=== PATIENT | female | born 1975 | race Caucasian/White ===

== ENCOUNTER 2017-02-23 00:04 | Emergency (ER) | payer BC ==
[2017-02-23] MEDS ORDERED: ONDANSETRON HCL/PF 2 MG/ML VIAL IV ONE (00:36)
[2017-02-23] MEDS ORDERED: NORMAL SALINE 1,000 ML IV ONE (00:37)
--- NOTE | 2017-02-23 00:41 | ERNOTE ---
Abdominal HPI - General Chief Complaint: Abdominal Pain Time Seen by Provider: 02/23/17 00:32 Source: patient Exam Limitations: no limitations - Immun/Allergies/Home Medications Immunizatons: IMMUNIZATION HX Immunizations Up to Date Yes History of Influenza Vaccine No Hx Pneumococcal Vaccination No Allergies/Adverse Reactions: Allergies No Known Allergies Allergy (Verified 02/23/17 00:12) Home Medications: HOME MEDICATIONS Ibuprofen 400 mg PO PRN PRN 02/23/17 [Last Taken 02/22/17 23:00 600 mg] - History of Present Illness Narrative: Pt had onset of abdominal pain after eating a recees peanut butter cup around 20 :00. She continues to have crampy upper abdominal pain with mild nausea Timing: constant Quality: moderate, cramping Activities at Onset: none Modifying Factors - (Improves): Present: sitting up Modifying Factors - (Worsens): Present: lying down Associated Symptoms: Present: back pain Prior Abdominal Problems: Present: none Review of Systems - Review of Systems Constitutional: Absent: recent illness EYE: Present: no symptoms reported ENT: Present: no symptoms reported Respiratory: Absent: shortness of breath Cardiology: Absent: chest pain Gastrointestinal/Abdominal: Present: nausea - mild. Absent: vomiting, diarrhea Genitourinary: Present: no symptoms reported Musculoskeletal: Present: no symptoms reported Skin: Present: no symptoms reported Neurological: Present: no symptoms reported Endocrine: Present: no symptoms reported Hematologic/Lymphatic: Present: no symptoms reported Psych: Present: no symptoms reported - Patient's Past Medical History Patient History - Medical: No pertinent hx Patient History - Cardiac/Respiratory: No pertinent hx Patient History - Cancer: No Hx of Cancer Patient History - Surgical Procedures: No surgical history Patient History - Other: None LMP (females 10-50): last week - Social History Living Situations: home Psych History: No pertinent hx Smoking Status: Current every day smoker Alcohol Use: none Drug Use: none - Immunizations Immunizations Up to Date: Yes Hx Pneumococcal Vaccination: No History of Influenza Vaccine: No Physical Exam - Physical Exam General Appearance: Present: wd/wn, alert, mild distress Head Exam: Present: normal inspection, no evidence of injury Eye Exam: Normal inspection: bilateral Neck: Present: normal inspection, supple Respiratory: Present: no respiratory distress, no accessory muscle use Gastrointestinal/Abdominal: Present: normal bowel sounds, tenderness - RUQ and epigastric. Absent: guarding, rebound Back Exam: Present: no vertebral tenderness, CVA tenderness (R) Extremity Exam: Present: normal inspection, normal range of motion, no edema Neurological Exam: Present: alert, oriented, normal mood/affect Skin Exam: Present: normal color, warm/dry ED Progress - Results and Orders Patient's Lab Results:: I have reviewed the patient's lab results. Results and Orders: Laboratory Tests 02/23/17 02/23/17 02/23/17 00:54 00:54 01:14 WBC 29.6 H Hgb 15.8 Hct 46.3 Plt Count 249 Neutrophils % (Manual) 76 H Sodium 137 Potassium 4.0 Chloride 101 Carbon Dioxide 25.5 Anion Gap 14.5 H BUN 13 Creatinine 0.77 Est GFR (Non-Af Amer) 88 Random Glucose 118 H Calcium 9.1 Total Bilirubin 0.5 AST 14 ALT 19 Alkaline Phosphatase 99 Total Protein 7.9 Albumin 3.5 Amylase 59 Lipase 142 Urine Color Dark yellow Urine Appearance Slightly cloudy Urine pH 6.0 Ur Specific [place] >=1.030 Urine Protein Negative Urine Glucose (UA) Negative Urine Ketones Negative Urine Blood 25 H Urine Nitrate Negative Urine Bilirubin 1 H Urine Ictotest Negative Urine Urobilinogen Normal Ur Leukocyte Esterase Negative Urine RBC 0-5 Urine WBC 0-5 Ur Epithelial Cells 10-25 H Amorphous Sediment Moderate - 2+ H Urine Bacteria None seen Urine Mucus Moderate - 2+ H Urine Culture Comments No culture indicated - Vital Signs Patient's Vital Signs:: I have reviewed the patient's vital signs. Vital Signs: Vital Signs 02/23/17 00:08 Temperature 36.2 C L Pulse Rate 78 Respiratory 18 Rate Blood Pressure 121/77 O2 Sat by Pulse 97 Oximetry - CT/Ultrasound CT/Ultrasound Narrative: Unremarkable appendix Slight apparent thickening of the colonic wall however collapsed, probably artifactual. No stranding. Remainder within normal limits. - Progress/Reassessment Chief Complaint: Abdominal Pain Progress:: Improved Progress Note-Subjective: 02/23/17 01:03 received report of 30k WBC count. Discussed CT with patient. She was somewhat resistant, I explained that there is not a better way to see inside her abdomen and evaluate the source of her pain 02/23/17 03:49 Pt. feeling much better rates her pain 08/17. Discussed having her CBC rechecked through her PCP to make sure there is not a blood disorder. Pt expressed understanding Departure - Departure Clinical Impression: Abdominal pain Qualifiers: Abdominal location: epigastric Qualified Code(s): R10.13 - Epigastric pain Leukocytosis, unspecified Qualifiers: Leukocytosis type: unspecified Qualified Code(s): D72.829 - Elevated white blood cell count, unspecified Disposition: Home self-care Condition: Good Instructions: Abdominal Pain, Adult, [id number] Additional Instructions: See your regular doctor to recheck your blood counts. Return to ER as needed Referrals: Britta Guerra MD [Primary Care Provider] -
[2017-02-23] MEDS ORDERED: ONDANSETRON HCL/PF 2 MG/ML VIAL ONE (00:42)
[2017-02-23 00:56] LABS: Hematocrit 46.3 % (37.0-47.0); Hemoglobin 15.8 gm/dL (12.5-16.0); Mean Cell Volume 93.5 fl (78-100); Mean Corpuscular Hemoglobin 31.9 pg (27-31); Mean Corpuscular Hgb Conc 34.1 g/dl (32-36); Mean Platelet Volume 9.4 fl (6.0-9.5); Platelet Count 249 K/mm3 (150-450); Red Blood Count 4.95 M/mm3 (4.2-5.4); Red Cell Distribution Width 12.7 % (11.5-14.0); White Blood Count 29.6 K/mm3 (4.0-10.5)
[2017-02-23] MEDS ORDERED: DIATRIZOATE MEGLU/DIATRIZO SOD 30 ML BTL PO ONE (01:03)
[2017-02-23] MEDS ORDERED: DIATRIZOATE MEGLU/DIATRIZO SOD 30 ML BTL ONE (01:04)
[2017-02-23 01:23] LABS: Albumin * 3.5 gm/dl (3.4-5.0); Anion Gap 14.5 mmol/L (6.8-13.8); BUN/Creatinine Ratio 16.9 (9.0-21.6); Bilirubin, Total 0.5 mg/dL (0.0-1.1); Ca. Corrected For Albumin 9.2 mg/dL (8.4-10.2); Calcium * 9.1 mg/dL (7.9-10.9); Carbon Dioxide 25.5 mmol/L (24-32.6); Total Protein 7.9 gm/dL (6.2-8.2)
[2017-02-23 01:25] LABS: Urine Amorphous Sediment Moderate - 2+ (NONE-FEW); Urine Appearance Slightly Cloudy; Urine Bacteria None Seen; Urine Bilirubin 1 mg/dl (NEGATIVE); Urine Blood 25 /ul (NEGATIVE); Urine Color Dark Yellow; Urine Ketone Negative (NEGATIVE); Urine Mucus Moderate - 2+; Urine Nitrite Negative (NEGATIVE); Urine Protein Negative (NEGATIVE); Urine RBC 0-5 /hpf (0-5); Urine Specific Gravity >=1.030 SP.GR. (1.005-1.010); Urine Urobilinogen Normal (NORMAL); Urine WBC 0-5 /hpf (0-5)
[2017-02-23 04:10] VITALS: BP 112/68
== END 2017-02-23 04:00 | disposition home or self-care (01) ==
LOC: ER 00:04
DX: D72.829 Elevated white blood cell count, unspecified (principal); R10.13 Epigastric pain; F17.200 Nicotine dependence, unspecified, uncomplicated
CPT/HCPCS: 36415; 74177; 80053; 81001; 82150; 83690; 85025; 96374; 99284; J2405